=== PATIENT | male | born 1965 | race African-American/Black ===

== ENCOUNTER 2018-10-13 05:30 | Day surgery (SDC) | payer BC, OTHER ==
[~2018-10-13] VITALS: Ht 193 cm; Wt 104.3 kg
--- NOTE | ~2018-10-13 | O ---
[facility] [address] [place] [address] OPERATIVE REPORT Name: ZACH PANIAGUA Christi Room #: 150-5 [facility] M..#: [id number] Admission: 10/13/18 Attend Phys: Jose Crawford MD Discharge: Date of : 63 Report #: [id number] THIS REPORT FOR: //name// CC: Jose Conte DATE OF SERVICE: 10/13/2018 PREOPERATIVE DIAGNOSES: Deviated nasal septum, nasal airway obstruction and obstructive sleep apnea. POSTOPERATIVE DIAGNOSES: Deviated nasal septum, nasal airway obstruction and obstructive sleep apnea. OPERATIVE PROCEDURE: Nasal septoplasty. ANESTHESIA: General endotracheal. DESCRIPTION OF PROCEDURE: The patient was taken to the operating room and placed in supine position. General anesthesia was induced by laryngeal mask. Once adequate general anesthesia was obtained, local nasal anesthesia was induced by submucoperichondrial injection of 1% lidocaine with 1:100,000 epinephrine and topical application of cocaine solution. The patient was then draped in a sterile manner. The patient had nasal septal deviation primarily to the left side. A hemitransfixion incision was placed on the left side of the nose and the mucoperichondrium and mucoperiosteum were elevated off the septum. The cartilage was incised in front of the bony cartilaginous junction, and a portion of cartilage and bone were removed from the midportion of the septum. There was a septal spur along the floor consisting of hypertrophic cartilage and a fracture of the maxillary crest. The cartilage was removed as a long strip, and the maxillary crest was infractured and rongeured. After these maneuvers, the septum sat more in the midline. The hemitransfixion incision was then closed with 4-0 chromic suture and a 4-0 plain mattress sutures placed as well. The patient tolerated the procedure well. Blood loss approximately 10 mL. The patient was then awoken and taken to the recovery room in stable condition for postoperative monitoring. By: 0830 [id number] Jose Crawford MD /nt
--- NOTE | ~2018-10-13 | H ---
[facility] [place] [address] [place] [address] HISTORY AND PHYSICAL Name: ZACH PANIAGUA Room #: 150-5 [facility]..#: [id number] Admission: 10/13/18 Attend Phys: Jose Crawford MD Discharge: Date of : 63 Report #: [id number] THIS REPORT FOR: //name// CC: Jose Conte DATE OF SERVICE: 10/13/2018 HISTORY OF PRESENT ILLNESS: The patient has difficulty breathing through the left side of his nose. He has difficulty for as long as he can remember, he has snoring and symptoms of obstructive sleep apnea. A sleep test several years ago showed obstructive sleep apnea and he has tried the CPAP machine, but it does not help. He gets sinus infections, especially during the winter. PAST MEDICAL HISTORY: Otherwise, significant for atrial fibrillation. MEDICATIONS: Include flecainide, metoprolol, aspirin. ALLERGIES: He has no known drug allergies. PHYSICAL EXAMINATION: He has a very severely deviated nasal septum to the left side with the septum almost touching the lateral wall of the nose. He has a decreased nasal airway on the left side and a good airway on the right side. His oropharynx and oral cavity were clear except he has a very large uvula. IMPRESSION: Deviated nasal septum with nasal airway obstruction and obstructive sleep apnea. PLAN: Nasal septoplasty. <ELECTRONICALLY SIGNED> By: Jose Crawford MD 10/13/18 0825 [id number] Jose Crawford MD /mita
[~2018-10-13 05:30] MED LIST: ASPIR 8181 MG PO; MULTIVITAMINS PO; NOHOMEMEDICATIONS; TAMBOCOR 100 M100 M1 PO; TOPROL XL25 MG PO
[2018-10-13 07:38] VITALS: BP 177/88
[2018-10-13 08:51] VITALS: BP 177/88
== END 2018-10-13 09:40 | disposition home or self-care (01) ==
LOC: OR 05:30 → TBA 05:31 → OR 09:40
DX: J34.2 Deviated nasal septum (principal); J34.89 Other specified disorders of nose and nasal sinuses; G47.33 Obstructive sleep apnea (adult) (pediatric); I48.91 Unspecified atrial fibrillation; Z79.82 Long term (current) use of aspirin; Z79.899 Other long term (current) drug therapy; Z79.01 Long term (current) use of anticoagulants; Z90.49 Acquired absence of other specified parts of digestive tract; Z98.890 Other specified postprocedural states
CPT/HCPCS: 50010; 50101; 50386; 50398; 56524; 56528; 62110; 62900; 64037; 70005